=== PATIENT | male | born 1975 | race Caucasian/White ===

== ENCOUNTER 2019-12-31 11:10 | Emergency (ER) | payer OTHER ==
[2019-12-31] MEDS ORDERED: Ketorolac 60 MG/2 ML SDV IM ONE (11:33)
[2019-12-31] MEDS ORDERED: Diphtheria,Pertussis(Acell),Tetanus Vaccine 0.5 ML Syringe IM ONE (11:33)
--- NOTE | 2019-12-31 11:34 | EDM.PDOC ---
ED HPI GENERAL MEDICAL PROBLEM - General Chief Complaint: Upper Extremity Injury/Pain Stated Complaint: PT FELL AT WORK AND INJURED BACK AND R ELBOW Time Seen by Provider: 12/31/19 11:17 Source of Information: Reports: Patient History Limitations: Reports: No Limitations - History of Present Illness INITIAL COMMENTS - FREE TEXT/NARRATIVE: HISTORY AND PHYSICAL: History of present illness: Patient is a 44-year-old male who presents to the emergency room with complaints of low back pain, right elbow and ankle pain post fall. He states he was cleaning a tank that had a slippery solvent in it. He had slipped and fallen on his right side. He denies hitting his head or having any loss of consciousness. He states he was able to immediately get up and be ambulatory although had some pain to the stated areas. He denies any urinary or fecal incontinence. Denies any numbness, tingling or saddle paresthesias. Patient denies any fever, chills, headache, change in vision, syncope or near syncope. Denies any chest pain, back pain, shortness of breath or cough. Denies any GI or symptoms. Patient has been eating and drinking appropriately. Review of systems: As per history of present illness and below otherwise all systems reviewed and negative. Past medical history: As per history of present illness and as reviewed below otherwise noncontributory. Surgical history: As per history of present illness and as reviewed below otherwise noncontributory. Social history: See social history for further information Family history: As per history of present illness and as reviewed below otherwise noncontributory. Physical exam: General: Well-developed and well-nourished 44-year-old male. Alert and oriented. Nontoxic-appearing and in no acute distress. HEENT: Atraumatic, nontender, normocephalic, pupils equal and reactive bilaterally, negative for conjunctival pallor or scleral icterus, mucous membranes moist, TMs normal bilaterally, throat clear, neck supple, nontender, trachea midline. No drooling or trismus noted. No meningeal signs. No hot potato voice noted. Lungs: Clear to auscultation, breath sounds equal bilaterally, chest nontender. Heart: S1S2, regular rate and rhythm without overt murmur Abdomen: Soft, nondistended, nontender. Negative for masses or hepatosplenomegaly. Negative for costovertebral tenderness. C-spine/Back: No pinpoint vertebral tenderness upon palpation. No crepitus, step -offs or obvious deformities. Paraspinous muscular tenderness bilaterally to lumbar region. Patient is ambulatory into the emergency room without difficulty or deficit. Able to rock back on heels and walk on toes. Denies any urinary or fecal incontinence. Denies any numbness, tingling or saddle paresthesia. Skin: Patient does what appear here is to have a chemical burn/irritation to the right lateral ankle, about the size of a quarter. Otherwise skin is intact, warm, dry. No lesions or rashes noted. Extremities: Pain with palpation of the right elbow, and right lateral ankle. SEE BACK FOR DETAILS. He moves all extremities per self without difficulty or deficits, negative for cords or calf pain. Neurovascular unremarkable. Neuro: Awake, alert, oriented. Cranial nerves II through XII unremarkable. Cerebellum unremarkable. Motor and sensory unremarkable throughout. Exam nonfocal. Notes: Patient has been up ambulating to and from the bathroom with steady gait. He declines Tdap. Skin care has been done. The area that was exposed to chemical was washed with soap and water. We discussed skin care, he requests antibiotics, which I think its fair - does look like it could develop into an early cellulitis. Diagnostics show no acute findings. Findings were shared with the patient. He states he needs "over a week " off of work. Will have him follow up with occupational health for work clearance. Medication and supportive care measures were reviewed and discussed. Voices understanding and is agreeable to plan of care. Denies any further questions or concerns at this time. Diagnostics: X-ray lumbar spine, right elbow, right ankle Therapeutics: Tdap, Toradol Prescription: Diclofenac and flexeril Impression: Fall Chemical burn Lumbar back pain Right elbow contusion Plan: 1. Rest, ice and elevate painful areas as able. Keep the skin to your lower extremities clean and dry. Avoid further chemical exposure to the open skin areas. Continue to monitor the skin for signs of improvement. 2. When resting please lay on a flat firm surface. Limit your immobility to prevent muscle stiffness. Get up to ambulate/move around/gentle stretching multiple times throughout the day. May alternate heat and ice to the painful areas 3. Tylenol as needed for back pain. Otherwise take the prescribed Flexeril and diclofenac as directed. Diclofenac is an anti-inflammatory so do not take any additional NSAIDs with this medication, such as ibuprofen or Aleve. Flexeril as a muscle relaxant, this medication may cause drowsiness a do not take it will driving her needing to be functioning outside of the house. 4. Please follow-up with your primary care provider as we discussed. Return to the ED as needed and as discussed. Definitive disposition and diagnosis as appropriate pending reevaluation and review of above. Right Arm Pain Score (Numeric/FACES): 9 - Related Data Allergies Allergy/AdvReac Type Severity Reaction Status Date / Time No Known Allergies Allergy Verified 12/31/19 11:28 Home Meds: Home Meds Cyclobenzaprine [Flexeril] 10 mg PO TID PRN #21 tab 12/31/19 [Rx] Diclofenac Sodium [Voltaren] 75 mg PO BIDMEALS PRN #30 tab.cr 12/31/19 [Rx] cephALEXin [Keflex] 500 mg PO BID 5 Days #10 cap 12/31/19 [Rx] Past Medical History - Past Health History Medical/Surgical History: Denies Medical/Surgical History HEENT History: Reports: None Cardiovascular History: Reports: None Respiratory History: Reports: None Gastrointestinal History: Reports: None Genitourinary History: Reports: None Musculoskeletal History: Reports: None Neurological History: Reports: None Psychiatric History: Reports: None Endocrine/Metabolic History: Reports: None Hematologic History: Reports: None Oncologic (Cancer) History: Reports: None Dermatologic History: Reports: None - Infectious Disease History Infectious Disease History: Reports: None - Past Surgical History Head Surgeries/Procedures: Reports: None Social & Family History - Family History Family Medical History: Noncontributory - Tobacco Use Smoking Status *Q: Current Every Day Smoker Years of Tobacco use: 20 Packs/Tins Daily: 0.2 - Caffeine Use Caffeine Use: Reports: Energy Drinks, Soda - Recreational Drug Use Recreational Drug Use: No Review of Systems - Review of Systems Review Of Systems: Comprehensive ROS is negative, except as noted in HPI. ED EXAM, GENERAL - Physical Exam Exam: See Below (See dictation) Course - Vital Signs Last Recorded V/S: Last Vital Signs Temp 97.2 F 12/31/19 11:18 Pulse 84 12/31/19 11:18 Resp 20 12/31/19 11:18 BP 131/80 12/31/19 11:18 Pulse Ox 95 12/31/19 11:18 - Orders/Labs/Meds Orders: Active Orders 24 hr Category Date Time Status Vaccines to be Administered [RC] PER UNIT ROUTINE Care 12/31/19 11:33 Active Meds: Medications Discontinued Medications Generic Name Dose Route Start Last Admin Trade Name Freq PRN Reason Stop Dose Admin Diphtheria/Tetanus/Acell Pertussis 0.5 ml 12/31/19 11:33 12/31/19 11:53 Adacel IM 12/31/19 11:34 Not Given .ONCE ONE Ketorolac Tromethamine 60 mg 12/31/19 11:33 12/31/19 11:54 Toradol IM 12/31/19 11:34 60 mg ONETIME ONE Administration Departure - Departure Time of Disposition: 13:06 Disposition: Home, Self-Care 01 Clinical Impression: Chemical burn, Lumbar back pain Fall Qualifiers: Encounter type: initial encounter Qualified Code(s): W19.XXXA - Unspecified fall, initial encounter Contusion of right elbow Qualifiers: Encounter type: initial encounter Qualified Code(s): S50.01XA - Contusion of right elbow, initial encounter - Discharge Information Prescriptions: cephALEXin [Keflex] 500 mg PO BID 5 Days #10 cap Cyclobenzaprine [Flexeril] 10 mg PO TID PRN #21 tab PRN Reason: Muscle Spasm Diclofenac Sodium [Voltaren] 75 mg PO BIDMEALS PRN #30 tab.cr PRN Reason: Pain Instructions: Acute Back Pain, Adult Referrals: PCP,None [Primary Care Provider] - Forms: ED Department Discharge Additional Instructions: The following information is given to patients seen in the emergency department who are being discharged to home. This information is to outline your options for follow-up care. We provide all patients seen in our emergency department with a follow-up referral. The need for follow-up, as well as the timing and circumstances, are variable depending upon the specifics of your emergency department visit. If you don't have a primary care physician on staff, we will provide you with a referral. We always advise you to contact your personal physician following an emergency department visit to inform them of the circumstance of the visit and for follow-up with them and/or the need for any referrals to a consulting specialist. The emergency department will also refer you to a specialist when appropriate. This referral assures that you have the opportunity for follow-up care with a specialist. All of these measure are taken in an effort to provide you with optimal care, which includes your follow-up. Under all circumstances we always encourage you to contact your private physician who remains a resource for coordinating your care. When calling for follow-up care, please make the office aware that this follow-up is from your recent emergency room visit. If for any reason you are refused follow-up, please contact the [facility] Emergency Department at and asked to speak to the emergency department charge nurse. [facility] [address] [place] [id number] [facility] [address] [place] [id number] 1. Rest, ice and elevate painful areas as able. Keep the skin to your lower extremities clean and dry. Avoid further chemical exposure to the open skin areas. Continue to monitor the skin for signs of improvement. 2. When resting please lay on a flat firm surface. Limit your immobility to prevent muscle stiffness. Get up to ambulate/move around/gentle stretching multiple times throughout the day. May alternate heat and ice to the painful areas 3. Tylenol as needed for back pain. Otherwise take the prescribed Flexeril and diclofenac as directed. Diclofenac is an anti-inflammatory so do not take any additional NSAIDs with this medication, such as ibuprofen or Aleve. Flexeril as a muscle relaxant, this medication may cause drowsiness a do not take it will driving her needing to be functioning outside of the house. 4. If you need an official release back to work, this needs to be done through occupational health. 5. Please follow-up with your primary care provider as we discussed. Return to the ED as needed and as discussed. Sepsis Event Note - Evaluation Sepsis Screening Result: No Definite Risk - Focused Exam Vital Signs: Vital Signs Temp Pulse Resp BP Pulse Ox 12/31/19 11:18 97.2 F 84 20 131/80 95 Date Exam was Performed: 12/31/19 Time Exam was Performed: 13:16 - My Orders Last 24 Hours: My Active Orders 12/31/19 11:33 Vaccines to be Administered [RC] PER UNIT ROUTINE - Assessment/Plan Last 24 Hours: My Active Orders 12/31/19 11:33 Vaccines to be Administered [RC] PER UNIT ROUTINE
--- NOTE | 2019-12-31 12:54 | CR ---
Lumbar spine: AP, lateral and cone-down lateral views centered to the lumbosacral junction were obtained. Comparison: No prior lumbar spine imaging. Mild disc space narrowing is noted at L4 to 3. Other disc spaces are maintained. Vertebral body heights are maintained. Scattered endplate osteophytes are seen. Pedicles are intact. Visualized transverse and spinous processes are intact. Sacroiliac joints are within normal limits. Impression: 1. Mild degenerative change as noted above. 2. Nothing acute is identified. Diagnostic code #2 This report was dictated in MDT
--- NOTE | 2019-12-31 13:03 | CR ---
Right ankle: 3 views of the right ankle were obtained. Comparison: No prior right ankle exam. Ankle mortise is symmetric. No fracture, dislocation or other bony abnormality is seen. Impression: 1. No abnormality is identified on right ankle exam. Diagnostic code #1 This report was dictated in MDT
--- NOTE | 2019-12-31 13:05 | CR ---
Right elbow: 3 views of the left elbow were obtained. Comparison: No prior elbow study. Joint spaces are maintained. No joint effusion is seen. No fracture or other bony abnormality is identified. Impression: 1. No abnormality is identified on right elbow study. Diagnostic code #1 This report was dictated in MDT
== END 2019-12-31 13:28 | disposition home or self-care (01) ==
LOC: MW.ED 11:10
DX: T25.411A Corrosion of unspecified degree of right ankle, initial encounter (principal); S50.01XA Contusion of right elbow, initial encounter; M54.5 Low back pain; F17.210 Nicotine dependence, cigarettes, uncomplicated; Z79.899 Other long term (current) drug therapy; W01.0XXA Fall on same level from slipping, tripping and stumbling without subsequent striking against object, initial encounter; Y99.0 Civilian activity done for income or pay
CPT/HCPCS: 72100; 73080; 73610; 96372; 99283; J1885

== ENCOUNTER 2021-06-14 01:18 | Emergency (ER) | payer SELFPAY ==
[2021-06-14] MEDS ORDERED: Alum Hydrox/Mag Hydrox/Simeth 15 ML, Lidocaine 2% 5 ML PO ONE ×2 (01:38)
[2021-06-14] MEDS ORDERED: Ondansetron 4 MG Tab.DIS PO ONE (01:38)
--- NOTE | 2021-06-14 01:40 | EDM.PDOC ---
ED HPI GENERAL MEDICAL PROBLEM - General Chief Complaint: General Stated Complaint: DIARREA COUGH Time Seen by Provider: 06/14/21 01:30 Source of Information: Reports: Patient History Limitations: Reports: No Limitations - History of Present Illness INITIAL COMMENTS - FREE TEXT/NARRATIVE: Is a 45-year-old male presents today for diarrhea. Patient did have dinner with his when after she developed some diarrhea and some vomiting. States has been vomiting and now having dry heaves. He said he also had a cough earlier but does not report any shortness of breath no chest pain no fever chills. Patient not any sick contacts. Patient with same restaurant is to have any similar symptoms. - Related Data Allergies Allergy/AdvReac Type Severity Reaction Status Date / Time No Known Allergies Allergy Verified 12/31/19 11:28 Home Meds: Home Meds Cyclobenzaprine [Flexeril] 10 mg PO TID PRN #21 tab 12/31/19 [Rx] Diclofenac Sodium [Voltaren] 75 mg PO BIDMEALS PRN #30 tab.cr 12/31/19 [Rx] cephALEXin [Keflex] 500 mg PO BID 5 Days #10 cap 12/31/19 [Rx] Past Medical History - Past Health History Medical/Surgical History: Denies Medical/Surgical History HEENT History: Reports: None Cardiovascular History: Reports: None Respiratory History: Reports: None Gastrointestinal History: Reports: None Genitourinary History: Reports: None Musculoskeletal History: Reports: None Neurological History: Reports: None Psychiatric History: Reports: None Endocrine/Metabolic History: Reports: None Hematologic History: Reports: None Oncologic (Cancer) History: Reports: None Dermatologic History: Reports: None - Infectious Disease History Infectious Disease History: Reports: None - Past Surgical History Head Surgeries/Procedures: Reports: None Social & Family History - Family History Family Medical History: No Pertinent Family History - Caffeine Use Caffeine Use: Reports: Energy Drinks - Recreational Drug Use Recreational Drug Use: No ED ROS GENERAL - Review of Systems Review Of Systems: See Below Constitutional: Reports: No Symptoms HEENT: Reports: No Symptoms Respiratory: Reports: No Symptoms Cardiovascular: Reports: No Symptoms Endocrine: Reports: No Symptoms GI/Abdominal: Reports: Diarrhea : Reports: No Symptoms Musculoskeletal: Reports: No Symptoms Skin: Reports: No Symptoms Neurological: Reports: No Symptoms Psychiatric: Reports: No Symptoms Hematologic/Lymphatic: Reports: No Symptoms Immunologic: Reports: No Symptoms ED EXAM, GENERAL - Physical Exam Exam: See Below Exam Limited By: No Limitations General Appearance: Alert, WD/WN, No Apparent Distress Head: Atraumatic Respiratory/Chest: No Respiratory Distress, Lungs Clear, Normal Breath Sounds Cardiovascular: Normal Peripheral Pulses, Regular Rate, Rhythm GI/Abdominal: Normal Bowel Sounds, Soft, Non-Tender Extremities: Normal Inspection Neurological: Alert, Oriented Course - Vital Signs Last Recorded V/S: Last Vital Signs Temp 97.5 F 06/14/21 01:35 Pulse 95 06/14/21 01:35 Resp 17 06/14/21 01:35 BP 110/81 06/14/21 01:35 Pulse Ox 95 06/14/21 01:35 - Orders/Labs/Meds Orders: Active Orders 24 hr Category Date Time Status COMPREHENSIVE METABOLIC PN,CMP [CHEM] Stat Lab 06/14/21 01:55 Received Labs: Laboratory Tests 06/14/21 Range/Units 01:55 WBC 8.69 (4.0-11.0) K/uL RBC 5.21 (4.50-5.90) M/uL Hgb 16.1 (13.0-17.0) g/dL Hct 45.8 (38.0-50.0) % MCV 87.9 (80.0-98.0) fL MCH 30.9 (27.0-32.0) pg MCHC 35.2 (31.0-37.0) g/dL RDW Std Deviation 42.4 (28.0-62.0) fl RDW Coeff of You 13 (11.0-15.0) % Plt Count 155 (150-400) K/uL MPV 10.00 (7.40-12.00) fL Neut % (Auto) 75.2 (48.0-80.0) % Lymph % (Auto) 13.3 L (16.0-40.0) % [place] % (Auto) 9.8 (0.0-15.0) % Eos % (Auto) 1.5 (0.0-7.0) % Baso % (Auto) 0.2 (0.0-1.5) % Neut # (Auto) 6.5 H (1.4-5.7) K/uL Lymph # (Auto) 1.2 (0.6-2.4) K/uL [place] # (Auto) 0.9 H (0.0-0.8) K/uL Eos # (Auto) 0.1 (0.0-0.7) K/uL Baso # (Auto) 0.0 (0.0-0.1) K/uL Nucleated RBC % 0.0 /100WBC Nucleated RBCs # 0 K/uL Meds: Medications Discontinued Medications Generic Name Dose Route Start Last Admin Trade Name Toan PRN Reason Stop Dose Admin Al Hydroxide/Mg Hydroxide 15 0 ml 06/14/21 01:38 06/14/21 01:56 ml/ Lidocaine HCl 5 ml PO 06/14/21 01:39 30 each ONETIME ONE Administration Ondansetron HCl 4 mg 06/14/21 01:38 06/14/21 01:56 Ondansetron 4 Mg Tab.Dis PO 06/14/21 01:39 4 mg ONETIME ONE Administration - Re-Assessments/Exams Free Text/Narrative Re-Assessment/Exam: 06/14/21 02:07 Patient 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 The patient is clinically not intoxicated, free from distracting pain, appears to have intact insight, judgment and reason and in my medical opinion has the capacity to make decisions. The patient is also not under any duress to leave the hospital. In this scenario, it would be battery to subject a patient to treatment against his/her will. I have voiced my concerns for the patient's health given that a full evaluation and treatment had not occurred. I have discussed the need for continued evaluation to determine if their symptoms are c aused by a condition that present risk of or morbidity. Risks including but not limited to , permanent disability, prolonged hospitalization, prolonged illness, were discussed. I tried offering alternative options in hopes that the patient might be amenable to partial evaluation and treatment which would be medically beneficial to the patient, though the patient declined my options and insisted on leaving. Because I have been unable to convince the patient to stay, I answered all of their questions about their condition and asked them to return to the ED as soon as possible to complete their evaluation, especially if their symptoms worsen or do not improve. I emphasized that leaving against medical advice does not preclude returning here for further evaluation. I asked the patient to return if they change their mind about the further evaluation and treatment. I strongly encouraged the patient to return to this Emergency Department or any Emergency Department at any time, particularly with worsening symptoms. Departure - Departure Time of Disposition: 02:07 Disposition: Against Medical Advice 07 Condition: Good Clinical Impression: General medical exam - Discharge Information *PRESCRIPTION DRUG MONITORING PROGRAM REVIEWED*: Not Applicable *COPY OF PRESCRIPTION DRUG MONITORING REPORT IN PATIENT PHILLIP: Not Applicable Instructions: Medical Screening Exam Referrals: PCP,None [Primary Care Provider] - Forms: ED Department Discharge Sepsis Event Note (ED) - Evaluation Sepsis Screening Result: No Definite Risk - Focused Exam Vital Signs: Vital Signs Temp Pulse Resp BP Pulse Ox 06/14/21 01:35 97.5 F 95 17 110/81 95 06/14/21 01:23 98.1 F 96 17 110/81 95 - My Orders Last 24 Hours: My Active Orders 06/14/21 01:55 COMPREHENSIVE METABOLIC PN,CMP [CHEM] Stat - Assessment/Plan Last 24 Hours: My Active Orders 06/14/21 01:55 COMPREHENSIVE METABOLIC PN,CMP [CHEM] Stat Plan: Is a 45-year-old male presents today for diarrhea vomiting and cough. Patient has no abdominal tenderness. Will obtain labs provide GI cocktail Zofran and reassess.
[2021-06-14 02:17] LABS: CARBON DIOXIDE,CO2 26.8 mmol/L (21.0-32.0)
== END 2021-06-14 02:14 | disposition left against medical advice (07) ==
LOC: MW.ED 01:18
DX: R19.7 Diarrhea, unspecified (principal); R11.10 Vomiting, unspecified; R05 Cough
CPT/HCPCS: 36415; 80053; 85025; 99284; A9270

== ENCOUNTER 2021-08-26 16:23 | Emergency (ER) | payer SELFPAY ==
[2021-08-26 20:08] LABS: CORONAVIRUS COVID-19 NAA NEGATIVE (NEGATIVE); INFLUENZA A NAA NEGATIVE (NEGATIVE); INFLUENZA B NAA NEGATIVE (NEGATIVE)
--- NOTE | 2021-08-26 20:59 | CR ---
INDICATION: Pain. TECHNIQUE: PA chest and 2 views of the left ribs. COMPARISON: 11/05/2018 chest x-ray. FINDINGS: Lungs clear. No pneumothorax. No left rib fracture identified. Normal exam. Dictated by Juancarlos Martini MD @ 08/26/2021 8:57:44 PM (Electronically Signed)
--- NOTE | 2021-08-26 21:13 | EDM.PDOC ---
ED HPI GENERAL MEDICAL PROBLEM - General Chief Complaint: Respiratory Problem Stated Complaint: LT RIB PAIN, HURTS TO BREATHE Time Seen by Provider: 08/26/21 19:11 Source of Information: Reports: Patient History Limitations: Reports: No Limitations - History of Present Illness INITIAL COMMENTS - FREE TEXT/NARRATIVE: HISTORY AND PHYSICAL: History of present illness: Patient is a 46-year-old male who presents emergency room today with concern of left-sided rib pain that has been ongoing for the past 2 to 3 days. Patient states that over the past 1-1/2 weeks, he has had a cough. Patient states that the cough has actually been improving and is getting better but states that a few days ago, he did have an episode of harder coughing and felt a popping sensation in his left ribs and states that since then he has had pain to the touch of his left-sided ribs. Patient denies any direct trauma or injury or any other symptoms or concerns. Patient denies fever, chills, chest pain, shortness of breath, or cough. Denies headache, neck stiff ness, change in vision, syncope, or near syncope. Denies nausea, vomiting, abdominal pain, diarrhea, constipation, or dysuria. Has not noted any blood in urine or stool. Patient has been eating and drinking appropriately. Review of systems: As per history of present illness and below otherwise all systems reviewed and negative. Past medical history: As per history of present illness and as reviewed below otherwise noncontributory. Surgical history: As per history of present illness and as reviewed below otherwise noncontri butory. Social history: See social history for further information Family history: As per history of present illness and as reviewed below otherwise noncontributory. Physical exam: General: Patient is alert, oriented, and in no acute distress. Patient sitting comfortably on exam table. Vitals stable and reviewed by me. HEENT: Atraumatic, normocephalic, pupils equal and reactive bilaterally, negative for conjunctival pallor or scleral icterus, mucous membranes moist, throat clear, neck supple, nontender, trachea midline. No drooling or trismus noted. No meningeal signs. No hot potato voice noted. Lungschest: Patient does have pain to palpation of the left anterior generalized rib cage without overlying ecchymosis, lesions, rash, edema, or erythema. Otherwise, clear to auscultation, breath sounds equal bilaterally, chest nontender. Heart: S1S2, regular rate and rhythm without overt murmur Abdomen: Soft, nondistended, nontender. Negative for masses or hepatosplenomegaly. Negative for costovertebral tenderness. Pelvis: Stable nontender. Genitourinary: Deferred. Rectal: Deferred. Skin: Intact, warm, dry. No lesions or rashes noted. Extremities: Atraumatic, negative for cords or calf pain. Neurovascular unremarkable. Neuro: Awake, alert, oriented. Cranial nerves II through XII unremarkable. Cerebellum unremarkable. Motor and sensory unremarkable throughout. Exam nonfocal. Medical Decision Making: Signs and symptoms that were prompt return to the ED thoroughly discussed with patient. Discussed importance for follow-up with primary care provider. Voices understanding and is agreeable to plan of care. Denies any further questions or concerns at this time. Diagnostics: Rib with chest x-ray Therapeutics: None Prescription: Diclofenac, Flexeril Impression: Left-sided rib injury Plan: 1. Take medication as prescribed. Your prescription has been sent to [place] [facility] at [facility]. 2. Encourage you to take heavy deep breaths and blow out over the course of 15 seconds 4 times a day until symptoms improve as discussed. 3. Follow-up with a primary care provider as discussed. Return to the ED as needed and as discussed. Definitive disposition and diagnosis as appropriate pending reevaluation and review of above. Chest Pain Score (Numeric/FACES): 8 - Related Data Allergies Allergy/AdvReac Type Severity Reaction Status Date / Time No Known Allergies Allergy Verified 08/26/21 17:26 Home Meds: Home Meds Cyclobenzaprine [Flexeril] 10 mg PO TID PRN #9 tab 08/26/21 [Rx] Diclofenac Sodium [Voltaren] 75 mg PO BIDMEALS PRN #15 tab.cr 08/26/21 [Rx] Past Medical History - Past Health History Medical/Surgical History: Denies Medical/Surgical History HEENT History: Reports: None Cardiovascular History: Reports: None Respiratory History: Reports: None Gastrointestinal History: Reports: None Genitourinary History: Reports: None Musculoskeletal History: Reports: None Neurological History: Reports: None Psychiatric History: Reports: None Endocrine/Metabolic History: Reports: None Hematologic History: Reports: None Oncologic (Cancer) History: Reports: None Dermatologic History: Reports: None - Infectious Disease History Infectious Disease History: Reports: None - Past Surgical History Head Surgeries/Procedures: Reports: None Social & Family History - Family History Family Medical History: No Pertinent Family History - Tobacco Use Tobacco Use Status *Q: Current Every Day Tobacco User Years of Tobacco use: 25 Packs/Tins Daily: 1 - Caffeine Use Caffeine Use: Reports: Coffee, Energy Drinks, Soda, Tea - Recreational Drug Use Recreational Drug Use: No ED ROS GENERAL - Review of Systems Review Of Systems: Comprehensive ROS is negative, except as noted in HPI. ED EXAM, GENERAL - Physical Exam Exam: See Below (see dictation) Course - Vital Signs Last Recorded V/S: Last Vital Signs Temp 98.5 F 08/26/21 17:28 Pulse 85 08/26/21 21:33 Resp 20 08/26/21 21:33 BP 134/96 H 08/26/21 21:33 Pulse Ox 99 08/26/21 21:33 - Orders/Labs/Meds Labs: Laboratory Tests 08/26/21 Range/Units 17:26 Influenza Type A RNA NEGATIVE (NEGATIVE) Influenza Type B RNA NEGATIVE (NEGATIVE) SARS-CoV-2 RNA ([facility]) NEGATIVE (NEGATIVE) Departure - Departure Time of Disposition: 21:12 Disposition: Home, Self-Care 01 Clinical Impression: Rib pain on left side - Discharge Information Prescriptions: Cyclobenzaprine [Flexeril] 10 mg PO TID PRN #9 tab PRN Reason: Spasms Diclofenac Sodium [Voltaren] 75 mg PO BIDMEALS PRN #15 tab.cr PRN Reason: Pain Instructions: Chest Wall Pain, [id number] Referrals: PCP,None [Primary Care Provider] - Forms: ED Department Discharge Additional Instructions: The following information is given to patients seen in the emergency department who are being discharged to home. This information is to outline your options for follow-up care. We provide all patients seen in our emergency department with a follow-up referral. The need for follow-up, as well as the timing and circumstances, are variable depending upon the specifics of your emergency department visit. If you don't have a primary care physician on staff, we will provide you with a referral. We always advise you to contact your personal physician following an emergency department visit to inform them of the circumstance of the visit and for follow-up with them and/or the need for any referrals to a consulting specialist. The emergency department will also refer you to a specialist when appropriate. This referral assures that you have the opportunity for follow-up care with a specialist. All of these measure are taken in an effort to provide you with optimal care, which includes your follow-up. Under all circumstances we always encourage you to contact your private physician who remains a resource for coordinating your care. When calling for follow-up care, please make the office aware that this follow-up is from your recent emergency room visit. If for any reason you are refused follow-up, please contact the [facility] Emergency Department at and asked to speak to the emergency department charge nurse. [facility] [address] [place] [id number] [id number] 1. Take medication as prescribed. Your prescription has been sent to [place] pharmacy at [facility]. 2. Encourage you to take heavy deep breaths and blow out over the course of 15 seconds 4 times a day until symptoms improve as discussed. 3. Follow-up with a primary care provider as discussed. Return to the ED as needed and as discussed. Sepsis Event Note (ED) - Evaluation Sepsis Screening Result: No Definite Risk - Focused Exam Vital Signs: Vital Signs Temp Pulse Resp BP Pulse Ox 08/26/21 21:33 85 20 134/96 H 99 08/26/21 17:28 98.5 F 90 16 133/88 96
== END 2021-08-26 21:00 | disposition home or self-care (01) ==
LOC: MW.ED 16:23
DX: R07.81 Pleurodynia (principal); F17.210 Nicotine dependence, cigarettes, uncomplicated; Z20.822 Contact with and (suspected) exposure to COVID-19
CPT/HCPCS: 0240U; 71101; 99283

== ENCOUNTER 2021-09-20 04:44 | Emergency (ER) | payer OTHER ==
--- NOTE | 2021-09-20 05:13 | EDM.PDOC ---
ED HPI GENERAL MEDICAL PROBLEM - General Chief Complaint: Upper Extremity Injury/Pain Stated Complaint: INJURED SHOULDER AT WORK Time Seen by Provider: 09/20/21 05:35 - History of Present Illness INITIAL COMMENTS - FREE TEXT/NARRATIVE: History of present illness: [] Patient fell down the last step group of steps yesterday and landed on his left elbow putting all of his weight onto his left shoulder now has pain in the left shoulder and low back. Patient has tingling in his fingers tips of his left hand. Patient is worse pain with range of motion. It happened less than 24 hours ago. He went to [place] had an x-ray. I do not have access to the x- ray and he wants me to interpret the x-ray so he is willing to have me do another picture tonight. Patient has no other injury. Review of systems: As per history of present illness and below otherwise all systems reviewed and negative. Past medical history: As per history of present illness and as reviewed below otherwise noncontributory. Surgical history: As per history of present illness and as reviewed below otherwise noncontributory. Social history: No reported history of drug or alcohol abuse. Family history: As per history of present illness and as reviewed below otherwise noncontributory. Physical exam: Constitutional - well developed, well-nourished and in no acute distress HEENT - normocephalic, no evidence of trauma - external nose and mouth normal - no mass in neck and no JVD - mucosae moist EYES - full EOM, PERRL, no icterus - no evidence of inflammation, injection, or drainage Respiratory - no respiratory distress, equal bilateral expansion, lungs clear to auscultation and no abnormal lung sounds Cardiovascular - Regular Rhythm with S1 and S2 appreciated and no murmur, gallop or rub. GI - abdomen soft without distension or organomegaly - normal bowel sounds - no guard or rebound Musculoskeletal tender left shoulder. No gross deformity of long bones or joints - no tenderness, swelling or edema Neurologic - Alert and oriented times four - CN II-XII grossly intact - motor sensory and coordination symmetrically normal Psychiatric - appropriate mood and affect with normal thought content Hematologic - No petechiae or purpura - mucosa appropriate color and sclera not pale - normal nail bed color and refill Integument - no rash or evidence of trauma - normal turgor Diagnostics: [] Therapeutics: [] Impression: [] Plan: [] Definitive disposition and diagnosis as appropriate pending reevaluation and review of above. L shoulder Pain Score (Numeric/FACES): 10 - Related Data Allergies Allergy/AdvReac Type Severity Reaction Status Date / Time No Known Allergies Allergy Verified 09/20/21 04:56 Home Meds: Home Meds methylPREDNISolone [Medrol Dose Pack] 4 mg PO DAILY #21 tab 09/20/21 [Rx] Past Medical History - Past Health History Medical/Surgical History: Denies Medical/Surgical History HEENT History: Reports: None Cardiovascular History: Reports: None Respiratory History: Reports: None Gastrointestinal History: Reports: None Genitourinary History: Reports: None Musculoskeletal History: Reports: None Neurological History: Reports: None Psychiatric History: Reports: None Endocrine/Metabolic History: Reports: None Hematologic History: Reports: None Oncologic (Cancer) History: Reports: None Dermatologic History: Reports: None - Infectious Disease History Infectious Disease History: Reports: None - Past Surgical History Head Surgeries/Procedures: Reports: None Social & Family History - Family History Family Medical History: No Pertinent Family History - Tobacco Use Tobacco Use Status *Q: Current Every Day Tobacco User Years of Tobacco use: 15 Packs/Tins Daily: 0.1 - Caffeine Use Caffeine Use: Reports: Energy Drinks - Recreational Drug Use Recreational Drug Use: No Review of Systems - Review of Systems Review Of Systems: Comprehensive ROS is negative, except as noted in HPI. ED EXAM, GENERAL - Physical Exam Exam: See Below Free Text/Narrative:: My physical exam is in the HPI Course - Vital Signs Last Recorded V/S: Last Vital Signs Temp 36.3 C 09/20/21 04:57 Pulse 89 09/20/21 04:57 Resp 18 09/20/21 04:57 BP 132/97 H 09/20/21 04:57 Pulse Ox 98 09/20/21 04:57 - Orders/Labs/Meds Orders: Active Orders 24 hr Category Date Time Status Ketorolac [Toradol] Med 09/20/21 06:00 Once 30 mg IM ONETIME ONE Medication Orders Ketorolac Tromethamine (Ketorolac 30 Mg/Ml Sdv) 30 mg IM ONETIME ONE Stop: 09/20/21 06:01 Meds: Medications Generic Name Dose Route Start Last Admin Trade Name Freq PRN Reason Stop Dose Admin Ketorolac Tromethamine 30 mg 09/20/21 06:00 Ketorolac 30 Mg/Ml Sdv IM 09/20/21 06:01 ONETIME ONE Departure - Departure Time of Disposition: 06:01 Disposition: Home, Self-Care 01 Condition: Good Clinical Impression: Contusion of left shoulder - Discharge Information Prescriptions: methylPREDNISolone [Medrol Dose Pack] 4 mg PO DAILY #21 tab Instructions: Contusion, [id number] Forms: ED Department Discharge Additional Instructions: Prescription went to [place] pharmacy that opens this morning at 8. Have your blood pressure rechecked when you are not in pain. You may need blood pressure medicine or medicine modification. [facility] [address] [place] [address], [address] [place] [address] The following information is given to patients seen in the emergency department who are being discharged to home. This information is to outline your options for follow-up care. We provide all patients seen in our emergency department with a follow-up referral. The need for follow-up, as well as the timing and circumstances, are variable depending upon the specifics of your emergency department visit. If you don't have a primary care physician on staff, we will provide you with a referral. We always advise you to contact your personal physician following an emergency department visit to inform them of the circumstance of the visit and for follow-up with them and/or the need for any referrals to a consulting specialist. The emergency department will also refer you to a specialist when appropriate. This referral assures that you have the opportunity for follow-up care with a specialist. All of these measure are taken in an effort to provide you with optimal care, which includes your follow-up. Under all circumstances we always encourage you to contact your private physician who remains a resource for coordinating your care. When calling for follow-up care, please make the office aware that this follow-up is from your recent emergency room visit. If for any reason you are refused follow-up, please contact the [facility] Emergency Department at and asked to speak to the emergency department charge nurse. Sepsis Event Note (ED) - Evaluation Sepsis Screening Result: No Definite Risk - Focused Exam Vital Signs: Vital Signs Temp Pulse Resp BP Pulse Ox 09/20/21 04:57 36.3 C 89 18 132/97 H 98 - My Orders Last 24 Hours: My Active Orders 09/20/21 06:00 Ketorolac [Toradol] 30 mg IM ONETIME ONE - Assessment/Plan Last 24 Hours: My Active Orders 09/20/21 06:00 Ketorolac [Toradol] 30 mg IM ONETIME ONE
--- NOTE | 2021-09-20 05:28 | CR ---
INDICATION: Shoulder pain following fall TECHNIQUE: Shoulder radiograph 2 views left COMPARISON: None FINDINGS: Bone: No acute fractures or aggressive bone lesions are identified. Joint: The glenohumeral joint is unremarkable. The acromioclavicular joint is unremarkable. Soft tissue: Unremarkable. The visualized hemithorax is unremarkable in appearance. No radiopaque foreign bodies are seen. IMPRESSION: 1. No acute osseous injuries or abnormalities are noted. Dictated by: Shelton Hoffman MD @ 09/20/2021 05:26:08 (Electronically Signed)
[2021-09-20] MEDS ORDERED: Ketorolac 30 MG/ML SDV IM ONE (06:00)
== END 2021-09-20 06:13 | disposition home or self-care (01) ==
LOC: MW.ED 04:44
DX: S40.012A Contusion of left shoulder, initial encounter (principal); W10.9XXA Fall (on) (from) unspecified stairs and steps, initial encounter
CPT/HCPCS: 73030; 96372; 99283; J1885

== ENCOUNTER 2022-01-17 09:44 | Emergency (ER) | payer OTHER ==
[2022-01-17] MEDS ORDERED: HYDROmorphone 1 MG/ML Syringe IM ONE (10:05)
== END 2022-01-17 11:29 | disposition home or self-care (01) ==
LOC: MW.ED 09:44
DX: S80.02XA Contusion of left knee, initial encounter (principal); W18.30XA Fall on same level, unspecified, initial encounter
CPT/HCPCS: 73562; 96372; 99283; J1170

== ENCOUNTER 2022-02-20 13:13 | Emergency (ER) | payer OTHER ==
[2022-02-20 14:01] LABS: BLOOD UREA NITROGEN,BUN 16 mg/dL (7.0-18.0); CHLORIDE,CL 102 mmol/L (98-107); GLUCOSE RANDOM 202 mg/dL (74-106); POTASSIUM,K 4.6 mmol/L (3.5-5.1); SODIUM,NA 137 mmol/L (136-148)
[2022-02-20] MEDS ORDERED: Magnesium Oxide 400 MG Tab PO ONE (14:03)
[2022-02-20] MEDS ORDERED: Lactated Ringers 1,000 ML IV STA (14:34)
[2022-02-20] MEDS ORDERED: Azithromycin 250 MG Tab PO STA (15:18)
== END 2022-02-20 16:44 | disposition home or self-care (01) ==
LOC: MW.ED 13:13
DX: J18.9 Pneumonia, unspecified organism (principal); R73.9 Hyperglycemia, unspecified; E83.42 Hypomagnesemia; Z79.899 Other long term (current) drug therapy; Z20.822 Contact with and (suspected) exposure to COVID-19
CPT/HCPCS: 36415; 71045; 80053; 83735; 83880; 84484; 85025; 85610; 87635; 93005; 96360; 99285; A9270; J7120; U0002

== ENCOUNTER 2022-04-05 00:45 | Emergency (ER) | payer MEDICAID | END 2022-04-05 01:08 | disposition left against medical advice (07) | LOC: MW.ED 00:45 | DX: R11.10 Vomiting, unspecified (principal); Z53.21 Procedure and treatment not carried out due to patient leaving prior to being seen by health care provider ==

== ENCOUNTER 2022-06-11 18:22 | Emergency (ER) | payer SELFPAY ==
[2022-06-11 20:18] LABS: CARBON DIOXIDE,CO2 27.1 mmol/L (21.0-32.0); POTASSIUM,K 3.8 mmol/L (3.5-5.1)
[2022-06-11] MEDS ORDERED: Iopamidol 755 MG/ML 500 ML Multipack Bottle IVPUSH ONE (20:29)
== END 2022-06-11 21:59 | disposition home or self-care (01) ==
LOC: MW.ED 18:22
DX: S30.1XXA Contusion of abdominal wall, initial encounter (principal); I10 Essential (primary) hypertension; W20.8XXA Other cause of strike by thrown, projected or falling object, initial encounter; Y99.0 Civilian activity done for income or pay
CPT/HCPCS: 36415; 74177; 80053; 81003; 83690; 85025; 85610; 99284; Q9967

== ENCOUNTER 2022-07-10 13:00 | Emergency (ER) | payer SELFPAY | END 2022-07-10 14:50 | LOC: MW.ED 13:00 | DX: R42 Dizziness and giddiness (principal); Z02.89 Encounter for other administrative examinations | CPT/HCPCS: 99283 ==

== ENCOUNTER 2022-08-05 15:03 | Emergency (ER) | payer SELFPAY ==
[2022-08-05] MEDS ORDERED: Ketorolac 30 MG/ML SDV IM STA (16:01)
[2022-08-05] MEDS ORDERED: Cyclobenzaprine 10 MG Tab PO ONE (16:33)
[2022-08-05] MEDS ORDERED: Acetaminophen/HYDROcodone 325-5 MG Tab PO ONE (16:49)
== END 2022-08-05 17:20 | disposition home or self-care (01) ==
LOC: MW.ED 15:03
DX: S16.1XXA Strain of muscle, fascia and tendon at neck level, initial encounter (principal); S39.012A Strain of muscle, fascia and tendon of lower back, initial encounter; F17.210 Nicotine dependence, cigarettes, uncomplicated; V49.50XA Passenger injured in collision with unspecified motor vehicles in traffic accident, initial encounter; Y92.410 Unspecified street and highway as the place of occurrence of the external cause
CPT/HCPCS: 72125; 72128; 96372; 99284; A9270; J1885

== ENCOUNTER 2022-12-06 19:14 | Emergency (ER) | payer SELFPAY ==
[2022-12-06] MEDS ORDERED: cefTRIAXone 2 GM in Premix Bag 1 BAG IV ONE (21:25)
[2022-12-06] MEDS ORDERED: Ondansetron 4 MG/2 ML SDV IVPUSH ONE (21:25)
[2022-12-06] MEDS ORDERED: Sodium Chloride 0.9% 10 ML Syringe FLUSH PRN (21:25)
[2022-12-06] MEDS ORDERED: Dexamethasone 10 MG/ML SDV IVPUSH ONE (21:25)
[2022-12-06] MEDS ORDERED: Ketorolac 30 MG/ML SDV IVPUSH ONE (21:25)
[2022-12-06] MEDS ORDERED: HYDROmorphone 1 MG/ML Syringe IVPUSH ONE (21:25)
[2022-12-06] MEDS ORDERED: Sodium Chloride 0.9% 2.5 ML Syringe FLUSH PRN (21:25)
[2022-12-06 23:30] LABS: CARBON DIOXIDE,CO2 26.8 mmol/L (21.0-32.0); POTASSIUM,K 4.1 mmol/L (3.5-5.1)
[2022-12-07] MEDS ORDERED: Acetaminophen/HYDROcodone 325-10 MG Tab PO ONE (01:46)
== END 2022-12-07 02:08 | disposition home or self-care (01) ==
LOC: MW.ED 19:14
DX: L03.213 Periorbital cellulitis (principal); R91.8 Other nonspecific abnormal finding of lung field; I10 Essential (primary) hypertension; Z79.899 Other long term (current) drug therapy
CPT/HCPCS: 36415; 70360; 70450; 70490; 71045; 80053; 83605; 84145; 85025; 85610; 87040; 96365; 96375; 99284; A9270; J0696; J1100; J1170; J1885; J2405; J3490

== ENCOUNTER 2023-01-02 12:57 | Emergency (ER) | payer BC | END 2023-01-02 14:05 | disposition home or self-care (01) | LOC: MW.ED 12:57 | DX: H60.551 Acute reactive otitis externa, right ear (principal); H65.01 Acute serous otitis media, right ear; I10 Essential (primary) hypertension; Z72.0 Tobacco use | CPT/HCPCS: 99282 ==

== ENCOUNTER 2023-02-01 08:59 | Emergency (ER) | payer SELFPAY ==
[2023-02-01] MEDS ORDERED: Ondansetron 4 MG Tab.DIS PO ONE (09:14)
== END 2023-02-01 09:18 | disposition left against medical advice (07) ==
LOC: MW.ED 08:59
DX: E86.0 Dehydration (principal); R53.1 Weakness; R11.2 Nausea with vomiting, unspecified; R19.7 Diarrhea, unspecified; I10 Essential (primary) hypertension
CPT/HCPCS: 99284; A9270

== ENCOUNTER 2023-03-29 14:16 | Emergency (ER) | payer SELFPAY ==
[2023-03-29] MEDS ORDERED: Sodium Chloride 0.9% 2.5 ML Syringe FLUSH PRN (14:21)
[2023-03-29] MEDS ORDERED: Sodium Chloride 0.9% 10 ML Syringe FLUSH PRN (14:21)
[2023-03-29] MEDS ORDERED: Activated Charcoal/Water Susp 50 GM/240 ML Tube PO STA (14:25)
[2023-03-29] MEDS ORDERED: Activated Charcoal/Sorbitol Susp 50 GM/240 ML Tube PO STA (14:34)
[2023-03-29 14:40] LABS: APPEARANCE,URINE CLEAR; BILIRUBIN,URINE NEGATIVE (NEGATIVE); COLOR,URINE YELLOW; GLUCOSE,URINE >=1000 mg/dL (NEGATIVE); KETONES,URINE NEGATIVE (NEGATIVE); LEUKOCYTE ESTERASE,URINE NEGATIVE (NEGATIVE); NITRITE,URINE NEGATIVE (NEGATIVE); OCCULT BLOOD,URINE NEGATIVE (NEGATIVE); PH,URINE 6.5 (5.0-8.0); PROTEIN,URINE NEGATIVE (NEGATIVE); UROBILINOGEN,URINE 0.2 EU/dL (<2.0)
[2023-03-29 14:45] LABS: BASOPHILS PERCENT AUTO 0.3 % (0.0-1.5); EOSINOPHILS ABSOLUTE AUTO 0.2 K/uL (0.0-0.7); EOSINOPHILS PERCENT AUTO 2.2 % (0.0-7.0); HEMOGLOBIN 15.9 g/dL (13.0-17.0); LYMPHOCYTES ABSOLUTE AUTO 1.3 K/uL (0.6-2.4); LYMPHOCYTES PERCENT AUTO 16.6 % (16.0-40.0); MEAN CORPUSCULAR HEMOGLOBIN 29.9 pg (27.0-32.0); MEAN CORPUSCULAR HGB CONC 34.6 g/dL (31.0-37.0); MEAN CORPUSCULAR VOLUME 86.5 fL (80.0-98.0); MONOCYTES ABSOLUTE AUTO 0.5 K/uL (0.0-0.8); MONOCYTES PERCENT AUTO 6.8 % (0.0-15.0); NEUTROPHILS ABSOLUTE AUTO 5.7 K/uL (1.4-5.7); NEUTROPHILS PERCENT AUTO 74.1 % (48.0-80.0); NRBC ABSOLUTE 0 K/uL; PLATELET COUNT,PLT 148 K/uL (150-400); RED BLOOD CELL COUNT 5.32 M/uL (4.50-5.90); WHITE BLOOD CELL COUNT,WBC 7.67 K/uL (4.0-11.0)
[2023-03-29 14:49] LABS: AMPHETAMINES SCREEN, URINE NEGATIVE (CUTOFF=500); BARBITURATE SCREEN,URINE NEGATIVE (CUTOFF=200); BENZODIAZEPINES SCREEN,URINE NEGATIVE (CUTOFF=150); BUPRENORPHINE SCREEN,URINE NEGATIVE (CUTOFF=10); METHADONE SCREEN, URINE NEGATIVE (CUTOFF=200); METHAMPHETAMINES SCREEN, URINE NEGATIVE (CUTOFF=500); OXYCODONE SCREEN,URINE NEGATIVE (CUT0FF=100); PCP SCREEN,URINE NEGATIVE (CUTOFF=25); PROPOXYPHENE SCREEN,URINE NEGATIVE (CUTOFF=300); THC SCREEN,URINE 20 NG/ML NEGATIVE (CUTOFF=50)
[2023-03-29] MEDS ORDERED: LORazepam 2 MG/ML SDV IVPUSH STA (15:08)
[2023-03-29 15:12] LABS: MAGNESIUM 1.5 mg/dL (1.8-2.4)
[2023-03-29] MEDS ORDERED: Magnesium Sulfate/Water 2 GM in Premix Bag 1 BAG IV STA (15:16)
[2023-03-29 15:18] LABS: A/G RATIO 1.2 (0.9-1.6); ALBUMIN 3.6 g/dL (3.4-5.0); BILIRUBIN TOTAL 0.5 mg/dL (0.2-1.0); CALCIUM 9.1 mg/dL (8.5-10.1); CARBON DIOXIDE,CO2 23.4 mmol/L (21.0-32.0); CREATININE 0.9 mg/dL (0.8-1.3); EST CRCL DRUG DOSING (CG) 111.37 mL/min; POTASSIUM,K 4.2 mmol/L (3.5-5.1); PROTEIN TOTAL,TP 6.6 g/dL (6.4-8.2)
[2023-03-29 15:44] LABS: ACETAMINOPHEN <2.0 ug/mL; SALICYLATE 8.1 mg/dL (0.0-20.0)
[2023-03-29 16:12] LABS: HEMOGLOBIN A1C 11.3 %
[2023-03-29] MEDS ORDERED: Sodium Chloride 0.9% 1,000 ML IV STA ×2 (16:21)
[2023-03-29 17:07] LABS: ACETAMINOPHEN <2.0 ug/mL; SALICYLATE 17.3 mg/dL (0.0-20.0)
[2023-03-29 19:16] LABS: ACETAMINOPHEN < 2.0 ug/mL; SALICYLATE 14.5 mg/dL (0.0-20.0)
[2023-03-29] MEDS ORDERED: Heparin Sodium/0.45% NaCl 500 ML IV STA (19:43)
[2023-03-29] MEDS ORDERED: Heparin Sodium 5,000 Units/ML Vial IVPUSH STA (19:43)
== END 2023-03-29 20:08 | disposition left against medical advice (07) ==
LOC: MW.ED 14:16
DX: I21.29 ST elevation (STEMI) myocardial infarction involving other sites (principal); T39.091A Poisoning by salicylates, accidental (unintentional), initial encounter; E83.42 Hypomagnesemia; D69.6 Thrombocytopenia, unspecified; D58.2 Other hemoglobinopathies; F17.200 Nicotine dependence, unspecified, uncomplicated; I10 Essential (primary) hypertension; E11.9 Type 2 diabetes mellitus without complications; Z20.822 Contact with and (suspected) exposure to COVID-19
CPT/HCPCS: 36415; 71045; 80053; 80143; 80179; 80305; 80307; 81003; 83036; 83735; 84484; 85025; 85379; 85730; 87635; 93005; 96361; 96365; 96375; 99285; J2060; J3475; J3490; J7030; 93010; U0002

== ENCOUNTER 2023-03-30 13:34 | Emergency (ER) | payer SELFPAY ==
[2023-03-30] MEDS ORDERED: Enoxaparin 100 MG/1 ML Syringe SUBCUT ONE ×2 (13:38→14:49)
[2023-03-30 14:09] LABS: BASOPHILS PERCENT AUTO 0.3 % (0.0-1.5); EOSINOPHILS ABSOLUTE AUTO 0.2 K/uL (0.0-0.7); EOSINOPHILS PERCENT AUTO 3.2 % (0.0-7.0); HEMATOCRIT 46.5 % (38.0-50.0); HEMOGLOBIN 15.4 g/dL (13.0-17.0); LYMPHOCYTES ABSOLUTE AUTO 0.8 K/uL (0.6-2.4); LYMPHOCYTES PERCENT AUTO 13.6 % (16.0-40.0); MEAN CORPUSCULAR HEMOGLOBIN 29.2 pg (27.0-32.0); MEAN CORPUSCULAR HGB CONC 33.1 g/dL (31.0-37.0); MEAN CORPUSCULAR VOLUME 88.1 fL (80.0-98.0); MONOCYTES ABSOLUTE AUTO 0.3 K/uL (0.0-0.8); MONOCYTES PERCENT AUTO 4.7 % (0.0-15.0); NEUTROPHILS ABSOLUTE AUTO 4.7 K/uL (1.4-5.7); NEUTROPHILS PERCENT AUTO 78.2 % (48.0-80.0); NRBC ABSOLUTE 0 K/uL; PLATELET COUNT,PLT 177 K/uL (150-400); RED BLOOD CELL COUNT 5.28 M/uL (4.50-5.90); WHITE BLOOD CELL COUNT,WBC 5.97 K/uL (4.0-11.0)
[2023-03-30 14:22] LABS: INR < 0.93 (0.86-1.11)
[2023-03-30 14:39] LABS: A/G RATIO 1.1 (0.9-1.6); ALBUMIN 3.6 g/dL (3.4-5.0); BILIRUBIN TOTAL 0.3 mg/dL (0.2-1.0); CALCIUM 9.1 mg/dL (8.5-10.1); CREATININE 0.7 mg/dL (0.8-1.3); EST CRCL DRUG DOSING (CG) 143.19 mL/min; MAGNESIUM 1.7 mg/dL (1.8-2.4); POTASSIUM,K 4.3 mmol/L (3.5-5.1); PROTEIN TOTAL,TP 6.8 g/dL (6.4-8.2)
[2023-03-30] MEDS ORDERED: 50% Dextrose in Water 50 ML Syringe IVPUSH PRN (15:00)
[2023-03-30] MEDS ORDERED: Insulin NPH/Insulin Regular,Human 70-30 100 Units/ML 10 ML Vial SUBCUT ONE (15:00)
[2023-03-30] MEDS ORDERED: Glucagon,Human Recombinant 1 MG Vial IM PRN (15:00)
== END 2023-03-30 19:05 ==
LOC: MW.ED 13:34
DX: I21.4 Non-ST elevation (NSTEMI) myocardial infarction (principal); I10 Essential (primary) hypertension
CPT/HCPCS: 36415; 71045; 80053; 80179; 83690; 83735; 83880; 84484; 85025; 85610; 85730; 93005; 96372; 99285; J1650; J1815; 93010; 99284

== ENCOUNTER 2023-04-15 19:32 | Emergency (ER) | payer SELFPAY | END 2023-04-15 23:03 | disposition home or self-care (01) | LOC: MW.ED 19:32 | DX: S99.912A Unspecified injury of left ankle, initial encounter (principal); I10 Essential (primary) hypertension; W22.8XXA Striking against or struck by other objects, initial encounter | CPT/HCPCS: 73610-26-LT; 73610-LT; 99283 ==

== ENCOUNTER 2023-05-10 14:11 | Emergency (ER) | payer SELFPAY | END 2023-05-10 15:26 | disposition home or self-care (01) | LOC: MW.ED 14:11 | DX: Z02.79 Encounter for issue of other medical certificate (principal) | CPT/HCPCS: 99282 ==

== ENCOUNTER 2023-07-24 08:44 | Emergency (ER) | payer SELFPAY ==
[2023-07-24] MEDS ORDERED: Ondansetron 4 MG Tab.DIS PO ONE (09:20)
== END 2023-07-24 10:08 | disposition home or self-care (01) ==
LOC: MW.ED 08:44
DX: R11.2 Nausea with vomiting, unspecified (principal); R19.7 Diarrhea, unspecified; I10 Essential (primary) hypertension
CPT/HCPCS: 99283; A9270

== ENCOUNTER 2023-11-11 08:20 | Emergency (ER) | payer OTHER ==
[2023-11-11] MEDS ORDERED: Sodium Chloride 0.9% 10 ML Syringe FLUSH PRN (08:33)
[2023-11-11] MEDS ORDERED: Sodium Chloride 0.9% 2.5 ML Syringe FLUSH PRN (08:33)
[2023-11-11] MEDS: Iopamidol 755 MG/ML 500 ML Multipack Bottle IVPUSH STA (09:48)
== END 2023-11-11 11:00 | disposition left against medical advice (07) ==
LOC: MW.ED 08:20
DX: M54.2 Cervicalgia (principal); I44.2 Atrioventricular block, complete; I10 Essential (primary) hypertension; V87.7XXA Person injured in collision between other specified motor vehicles (traffic), initial encounter; Y92.410 Unspecified street and highway as the place of occurrence of the external cause
CPT/HCPCS: 70450; 71275; 72125; 72128; 72131; 74177; 99285; Q9967; 93010; 99284

== ENCOUNTER 2023-11-16 14:14 | Emergency (ER) | payer SELFPAY ==
[2023-11-16 14:44] LABS: BASOPHILS ABSOLUTE AUTO 0.03 K/uL (0.00-0.20); BASOPHILS PERCENT AUTO 0.4 % (0.0-1.0); EOSINOPHILS ABSOLUTE AUTO 0.05 K/uL (0.00-0.45); EOSINOPHILS PERCENT AUTO 0.7 % (0.0-6.0); HEMATOCRIT 46.4 % (42.0-52.0); HEMOGLOBIN 16.4 g/dL (14.0-18.0); IMMATURE GRAN ABSOLUTE AUTO 0.02 K/uL (0.00-0.05); IMMATURE GRAN PERCENT AUTO 0.3 % (0.0-0.4); LYMPHOCYTES ABSOLUTE AUTO 0.79 K/uL (1.00-4.80); LYMPHOCYTES PERCENT AUTO 10.4 % (24.0-44.0); MEAN CORPUSCULAR HEMOGLOBIN 29.9 pg (28.0-32.0); MEAN CORPUSCULAR HGB CONC 35.3 g/dL (32.0-36.0); MEAN CORPUSCULAR VOLUME 84.5 fL (83.0-99.0); MONOCYTES ABSOLUTE AUTO 0.38 K/uL (0.00-0.80); NEUTROPHILS ABSOLUTE AUTO 6.33 K/uL (1.80-7.70); NEUTROPHILS PERCENT AUTO 83.2 % (41.0-71.0); PLATELET COUNT,PLT 146 K/uL (150-400); RED BLOOD CELL COUNT 5.49 M/uL (4.52-5.90)
[2023-11-16 15:21] LABS: CALCIUM 9.6 mg/dL (8.5-10.1); CARBON DIOXIDE,CO2 26.5 mmol/L (21.0-32.0); CREATININE 0.9 mg/dL (0.8-1.3); EST CRCL DRUG DOSING (CG) 113.44 mL/min; POTASSIUM,K 4.6 mmol/L (3.5-5.1)
== END 2023-11-16 19:22 ==
LOC: MW.ED 14:14
DX: I44.2 Atrioventricular block, complete (principal); F17.210 Nicotine dependence, cigarettes, uncomplicated
CPT/HCPCS: 36415; 80048; 84484; 85025; 93005; 93010; 99285

== ENCOUNTER 2023-12-24 16:30 | Emergency (ER) | payer SELFPAY ==
[2023-12-24 17:14] LABS: BASOPHILS ABSOLUTE AUTO 0.03 K/uL (0.00-0.20); BASOPHILS PERCENT AUTO 0.3 % (0.0-1.0); EOSINOPHILS ABSOLUTE AUTO 0.11 K/uL (0.00-0.45); EOSINOPHILS PERCENT AUTO 1.3 % (0.0-6.0); HEMATOCRIT 46.8 % (42.0-52.0); HEMOGLOBIN 17.3 g/dL (14.0-18.0); IMMATURE GRAN ABSOLUTE AUTO 0.03 K/uL (0.00-0.05); IMMATURE GRAN PERCENT AUTO 0.3 % (0.0-0.4); LYMPHOCYTES ABSOLUTE AUTO 0.89 K/uL (1.00-4.80); LYMPHOCYTES PERCENT AUTO 10.2 % (24.0-44.0); MEAN CORPUSCULAR HEMOGLOBIN 29.7 pg (28.0-32.0); MEAN CORPUSCULAR VOLUME 80.3 fL (83.0-99.0); MEAN PLATELET VOLUME 10.6 fL (9.4-12.4); MONOCYTES ABSOLUTE AUTO 0.53 K/uL (0.00-0.80); MONOCYTES PERCENT AUTO 6.1 % (0.0-8.0); NEUTROPHILS ABSOLUTE AUTO 7.15 K/uL (1.80-7.70); NEUTROPHILS PERCENT AUTO 81.8 % (41.0-71.0); PLATELET COUNT,PLT 173 K/uL (150-400); RED BLOOD CELL COUNT 5.83 M/uL (4.52-5.90); WHITE BLOOD CELL COUNT,WBC 8.74 K/uL (3.9-11.3)
[2023-12-24] MEDS: Ondansetron 4 MG Tab.DIS PO ONE (17:41)
[2023-12-24 17:48] LABS: CORONAVIRUS COVID-19 NAA NEGATIVE (NEGATIVE); INFLUENZA A NAA NEGATIVE (NEGATIVE); INFLUENZA B NAA NEGATIVE (NEGATIVE); RESPIRATORY SYNCYTIAL VIR NAA NEGATIVE (NEGATIVE)
[2023-12-24 17:48] LABS: A/G RATIO 0.9 (0.9-1.6); ALBUMIN 3.7 g/dL (3.4-5.0); BILIRUBIN TOTAL 0.6 mg/dL (0.2-1.0); CALCIUM 9.8 mg/dL (8.5-10.1); CARBON DIOXIDE,CO2 22.7 mmol/L (21.0-32.0); CREATININE 1.5 mg/dL (0.8-1.3); EST CRCL DRUG DOSING (CG) 66.1 mL/min; POTASSIUM,K 4.4 mmol/L (3.5-5.1); PROTEIN TOTAL,TP 7.7 g/dL (6.4-8.2)
[2023-12-24] MEDS ORDERED: Sodium Chloride 0.9% 1,000 ML IV ONE (18:03)
== END 2023-12-24 18:19 | disposition left against medical advice (07) ==
LOC: MW.ED 16:30
DX: E11.65 Type 2 diabetes mellitus with hyperglycemia (principal); Z91.148 Patient's other noncompliance with medication regimen for other reason; Z53.29 Procedure and treatment not carried out because of patient's decision for other reasons; Z75.8 Other problems related to medical facilities and other health care; F17.210 Nicotine dependence, cigarettes, uncomplicated
CPT/HCPCS: 0241U; 36415; 71045; 80053; 85025; 99283; A9270

== ENCOUNTER 2024-02-18 22:07 | Emergency (ER) | payer MEDICAID ==
[2024-02-18] MEDS: Ibuprofen 600 MG Tab PO ONE (23:24)
== END 2024-02-18 23:36 | disposition home or self-care (01) ==
LOC: MW.ED 22:07
DX: M79.642 Pain in left hand (principal); Z75.8 Other problems related to medical facilities and other health care; Z79.899 Other long term (current) drug therapy; Z95.0 Presence of cardiac pacemaker
CPT/HCPCS: 99283; A9270; 93010

== ENCOUNTER 2024-05-26 14:05 | Emergency (ER) | payer MEDICAID | END 2024-05-26 14:56 | disposition home or self-care (01) | LOC: MW.ED 14:05 | DX: K04.7 Periapical abscess without sinus (principal); K02.9 Dental caries, unspecified; Z75.8 Other problems related to medical facilities and other health care; Z79.899 Other long term (current) drug therapy; Z95.0 Presence of cardiac pacemaker | CPT/HCPCS: 99283 ==

== ENCOUNTER 2024-06-12 09:17 | Emergency (ER) | payer MEDICAID ==
[2024-06-12] MEDS: Lidocaine 2% Viscous Solution 15 ML UD PO ONE (10:33)
[2024-06-12] MEDS: Amoxicillin/Clavulanate K 875-125 MG Tab PO ONE (10:33)
[2024-06-12] MEDS: Benzocaine 20% Topical Spray UD MUCMEM ONE (10:33)
[2024-06-12] MEDS: Ibuprofen 600 MG Tab PO ONE (10:34)
[2024-06-12] MEDS: Cyclobenzaprine 10 MG Tab PO ONE (10:34)
== END 2024-06-12 11:40 | disposition home or self-care (01) ==
LOC: MW.ED 09:17
DX: R07.81 Pleurodynia (principal); K04.7 Periapical abscess without sinus; Z75.8 Other problems related to medical facilities and other health care
CPT/HCPCS: 71046; 99283; A9270